=== PATIENT | female | born 1985 | race Caucasian/White ===

== ENCOUNTER 2023-02-07 09:09 | Outpatient (CLI) | payer OTHER | END 2023-02-08 10:16 | disposition home or self-care (01) | LOC: OBS/DEL 09:09 | PROVIDERS: ATTEND Obstetrics & Gynecology | DX: O26.833 Pregnancy related renal disease, third trimester (principal); N20.0 Calculus of kidney; Z3A.35 35 weeks gestation of pregnancy; Z88.6 Allergy status to analgesic agent ==